=== PATIENT | female | born 1955 | race Hispanic/Latino ===

== ENCOUNTER 2018-01-02 11:00 | Observation (INO) | payer OTHER ==
[~2018-01-02] VITALS: Ht 162.6 cm; Wt 70.6 kg
[2018-01-04 11:38] VITALS: BP 140/80
[2018-01-04] MEDS ORDERED: OMEP20TA25 PO (12:02)
[2018-01-04] MEDS ORDERED: LOSA25TA21 PO (12:02)
[2018-01-04] MEDS ORDERED: ROSU20TA30 PO (12:02)
[2018-01-04] MEDS ORDERED: SENN-107 PO (12:02)
[2018-01-04] MEDS ORDERED: TURM1CAP PO (12:02)
[2018-01-04] MEDS ORDERED: VANCOMYCIN 1GM+NS 250ML 250 ML IV SCH (17:00)
[2018-01-05] VITALS (23 sets, daily range): BP systolic 104–164; BP diastolic 57–93
[2018-01-05] MEDS ORDERED: LACTATED RINGERS 1000ML 1,000 ML IV ONE (08:21)
[2018-01-05] MEDS: CEFAZOLIN SODIUM 1 GM VIAL IVP SCH ×3 (08:57→19:02)
[2018-01-05] MEDS ORDERED: ROPIVACAINE 0.5% 5MG/ML 30ML IJ ONE (09:30)
[2018-01-05] MEDS ORDERED: FENTANYL CITRATE PF 50 MCG/1 ML 2ML VIAL ONE (09:45)
[2018-01-05] MEDS ORDERED: MIDAZOLAM HCL 1 MG/ML 2ML VIAL ONE (09:45)
[2018-01-05] MEDS ORDERED: PROPOFOL 10 MG/ML 20ML VIAL IV ONE (09:45)
[2018-01-05] MEDS ORDERED: ONDANSETRON HCL 4 MG/2 ML VIAL ONE (11:31)
[2018-01-05] MEDS ORDERED: DiphenhydrAMINE HCL 50 MG/ML VIAL ONE (11:31)
[2018-01-05] MEDS ORDERED: GLYCOPYRROLATE 1 MG/5 ML SYRINGE ONE (11:31)
[2018-01-05] MEDS ORDERED: NEOSTIGMINE 5MG/5ML SYR IV ONE (11:31)
[2018-01-05] MEDS ORDERED: SODIUM CHLORIDE 0.9% 10 ML VIAL ONE (11:31)
[2018-01-05] MEDS ORDERED: PHENYLEPHRINE HCL 10 MG/ML 1ML VIAL IV ONE (11:31)
[2018-01-05] MEDS ORDERED: ROCURONIUM BROMIDE 10MG/1ML 5ML VL ONE (11:32)
[2018-01-05 12:22] LABS: HEMATOCRIT 33.9 % (36-48)
[2018-01-05] MEDS ORDERED: MAGNESIUM HYDROXIDE 30 ML/UDCUP PO PRN (17:00)
[2018-01-05] MEDS ORDERED: DEXTROSE 5%-LACTATED RINGERS 1,000 ML IV SCH (17:00)
[2018-01-05] MEDS ORDERED: MORPHINE SULFATE 10 MG/ML 1ML VIAL IM PRN (17:00)
[2018-01-05] MEDS ORDERED: PROMETHAZINE HCL 25 MG/ML 1ML AMPULE IM PRN (17:00)
[2018-01-05] MEDS ORDERED: BISACODYL 10 MG SUPP.RECT RC PRN (17:00)
[2018-01-05] MEDS ORDERED: MORPHINE SULFATE 10 MG/ML 1ML SYG IM PRN (17:00)
[2018-01-05] MEDS ORDERED: ONDANSETRON HCL 4 MG/2 ML VIAL IVP PRN (17:30)
[2018-01-05] MEDS ORDERED: HYDRALAZINE HCL 20 MG/ML VIAL IV PRN (17:30)
[2018-01-05] MEDS ORDERED: HYDROCODONE/ACETAMINOPHEN 5/325 MG TAB PO PRN (17:30)
[2018-01-05] MEDS ORDERED: ACETAMINOPHEN 325 MG TAB PO PRN ×2 (17:30→18:30)
[2018-01-05 18:35] LABS: HEMATOCRIT 35.7 % (36-48)
[2018-01-05] MEDS ORDERED: BENZOCAINE/MENTH/CETYLPYRD CL 1 EACH LOZENGE MM PRN (20:00)
[2018-01-05] MEDS ORDERED: MORPHINE SULFATE 2 MG/ML 1ML SYG IVP PRN (20:30)
[2018-01-05] MEDS ORDERED: KETOROLAC TROMETHAMINE 30MG/ML ONE (20:36)
[2018-01-05] MEDS: KETOROLAC TROMETHAMINE 30MG/ML IV PRN (20:41)
[2018-01-05] MEDS: FAMOTIDINE 20MG TAB 20 MG TAB PO SCH (20:52)
[2018-01-05] MEDS ORDERED: Rosuvastatin Calcium 20 MG PO SCH (21:00)
[2018-01-05] MEDS ORDERED: NON-FORMULARY MEDICATION 1 EACH (Omeprazole 20 MG) PO SCH (21:00)
[2018-01-05] MEDS ORDERED: LOSARTAN 50 MG TABLET PO SCH (21:00)
[2018-01-05] MEDS: MORPHINE SULFATE 2 MG/ML 1ML SYG IV PRN (22:11)
[2018-01-05] MEDS: ACETAMINOPHEN-CODEINE 300/30MG TAB PO PRN (23:43)
[2018-01-06] VITALS: BP 157/86
[2018-01-06 00:27] LABS: HEMATOCRIT 35.1 % (36-48)
[2018-01-06] MEDS: CEFAZOLIN SODIUM 1 GM VIAL IVP SCH ×2 (01:54→09:10)
[2018-01-06] MEDS: MORPHINE SULFATE 2 MG/ML 1ML SYG IV PRN (02:15)
[2018-01-06] MEDS: KETOROLAC TROMETHAMINE 30MG/ML IV PRN (04:20)
[2018-01-06 04:26] VITALS: BP 151/87
[2018-01-06 05:47] LABS: BASOPHILS % (AUTO) 0.7 % (0.0-5.0); EOSINOPHILS % (AUTO) 0.7 % (0.0-8.0); HEMATOCRIT 34.1 % (36-48); LYMPHOCYTES % (AUTO) 15.3 % (21.0-51.0); MEAN CORPUSCULAR HEMOGLOBIN 28.7 pg (27.0-33.0); MEAN CORPUSCULAR HGB CONC 33.3 g/dL (32.0-36.0); NEUTROPHILS % (AUTO) 74.3 % (40.0-77.0); NUCLEATED RED BLOOD CELLS 0.1 % (0.0-0.19); PLATELET COUNT (AUTO) 318 K/uL (130-400); RED BLOOD CELL COUNT(AUTO) 3.96 MIL/uL (4.00-5.50); RED CELL DISTRIBUTION WIDTH 14.1 % (11.0-15.5); WHITE BLOOD COUNT (AUTO) 14.2 K/uL (4.8-10.8)
[2018-01-06 05:57] LABS: CREATININE 0.8 mg/dL (0.5-1.5)
[2018-01-06 07:30] VITALS: BP 142/79
[2018-01-06] MEDS: FAMOTIDINE 20MG TAB 20 MG TAB PO SCH (08:36)
[2018-01-06] MEDS: ACETAMINOPHEN-CODEINE 300/30MG TAB PO PRN ×2 (08:36→13:34)
[2018-01-06] MEDS ORDERED: PANTOPRAZOLE SODIUM 40 MG TABLET.DR PO SCH (09:00)
[2018-01-06] MEDS ORDERED: ENOXAPARIN SODIUM 40 MG/0.4 ML SYRINGE SQ SCH ×2 (09:00)
[2018-01-06 11:00] VITALS: BP 144/75
[2018-01-06] MEDS ORDERED: TRAM50TA2 PO (12:39)
[2018-01-06] MEDS ORDERED: TYL3B PO (12:39)
[2018-01-06 16:00] VITALS: BP 176/81
== END 2018-01-06 17:55 | disposition home or self-care (01) ==
LOC: DAHIP 01-05 07:51 → EDSTATUS 01-05 11:00 → 4CH 01-05 12:39 → 4AH 01-05 22:29
DX: S42.202A Unspecified fracture of upper end of left humerus, initial encounter for closed fracture (principal); M75.42 Impingement syndrome of left shoulder; M75.102 Unspecified rotator cuff tear or rupture of left shoulder, not specified as traumatic; S42.253A Displaced fracture of greater tuberosity of unspecified humerus, initial encounter for closed fracture; K21.9 Gastro-esophageal reflux disease without esophagitis; I10 Essential (primary) hypertension; E78.00 Pure hypercholesterolemia, unspecified; E78.5 Hyperlipidemia, unspecified; Z79.899 Other long term (current) drug therapy; E03.9 Hypothyroidism, unspecified; Z80.0 Family history of malignant neoplasm of digestive organs; Z80.49 Family history of malignant neoplasm of other genital organs; Z82.49 Family history of ischemic heart disease and other diseases of the circulatory system; Z83.3 Family history of diabetes mellitus; Z90.710 Acquired absence of both cervix and uterus; X58.XXXA Exposure to other specified factors, initial encounter; Y93.89 Activity, other specified; Y92.89 Other specified places as the place of occurrence of the external cause; Y99.8 Other external cause status
CPT/HCPCS: 23120; 23130; 23412; 23615; 36415 ×2; 80048; 85014 ×3; 85018 ×3; 85025; 88304; 88311; 94760; 96365; 96366; 96372; 96375; 96376; 97039; 97116 ×2; 97161; A4218 ×4; A4606; A4930 ×2; A6223; C1713 ×2; G0378 ×35; G8978; G8979; G8980; G8981; G8982; G8983; J0690 ×5; J1200; J1650; J1885 ×2; J2250; J2370; J2405; J2704; J2710; J2795; J3010; J3370; J3490 ×2; J7030; J7120